=== PATIENT | female | born 1980 | race Caucasian/White ===

== ENCOUNTER 2021-03-01 01:41 | Outpatient (CLI) | payer BC, SELFPAY ==
--- NOTE | 2021-03-01 08:15 | DI.MAMMO_ITS ---
Exam(s) MAMMO SCREENING EXAM: MAMMO SCREENING CLINICAL HISTORY: screening,z12.39 TECHNIQUE: Bilateral full field digital CC and MLO mammographic images were obtained with 3D tomosyn thesis and utilizing computer aided detection (CAD). COMPARISON: Available for comparison. FINDINGS: Masses/Architectural Distortion: None seen. Microcalcifications: No suspicious pleomorphic-type are seen. Skin Thickening/Nipple Retraction: None. IMPRESSION: 1. No significant interval change with no specific features of malignancy noted. 2. Unless there is more urgent need, screening mammography is recommended, as per [place] [employer] guidelines. BI-RADS Category 1 - Negative Breast Density - Category A - Almost entirely fatty Breast density category C or D implies that the patient has dense breast tissue. Dense breast tissue is very common and is not abnormal but dense breast tissue can make it harder to find cancer on a ma mmogram. Also, dense breast tissue may increase their breast cancer risk. This information about the result of the mammogram report was provided to the patient to raise their awareness. Use this report when you speak with the patient about their risks for breast cancer, which includes their family hist ory. At that time, you may recommend for more screening tests (Ultrasound or MRI) as they might be us eful based on their risk. A negative radiographic report should not delay biopsy if a dominant or clinically suspicious mass is present. Up to ten percent of cancers are not identified on mammography. A negative report may reinforce clinical impression. Adenosis and dense breasts may obscure an underlying neoplasm. False positive reports average 6 to 10%. Patient will receive a letter notifying them of these results.
== END 2021-03-01 02:01 ==
PROVIDERS: PCP Nurse Practitioner Family; Visit Provider Nurse Practitioner Family
DX: Z12.31 Encounter for screening mammogram for malignant neoplasm of breast (principal)
CPT/HCPCS: 77063; 77067

== ENCOUNTER 2021-03-18 18:31 | Outpatient (CLI) | payer BC, SELFPAY ==
[2021-03-18 16:40] LABS: Abs Immature Grans 0.02 10^3/uL (0.0-0.06); Absolute Basophil Count 0.04 10^3/uL (0.0-0.2); Absolute Eosinophil Count 0.22 10^3/uL (0.0-0.7); Absolute Lymphocyte Count 3.11 10^3/uL (1.2-3.4); Absolute Neutrophil Count 4.41 10^3/uL (1.2-6.7); Basophils % 0.5; Eosinophils % 2.7; HCT 41.9 % (36.0-46.0); HGB 14.2 g/dL (11.2-15.7); Immature Grans % 0.2; Lymphocytes % 37.5; MCH 29.1 pg (27.0-33.0); MCHC 33.9 % (32.0-36.0); MCV 85.9 fL (80-95); MPV 10.2 fL (8.0-11.0); Neutrophils % 53.1; Nucleated RBC 0 %; Platelet Count 288 10^3/uL (130-400); RBC 4.88 10^6/uL (3.93-5.22); RDW 12.1 % (11.7-14.6); RDW-SD 38.2 fL
[2021-03-18 16:57] LABS: ALT 39 U/L (14-59); AST 22 U/L (15-37); Albumin 4.1 g/dL (3.4-5.0); Alkaline Phosphatase 74 U/L (46-116); Anion Gap 7.6 mmol/L (3-11); BUN 10 mg/dL (7-18); Bilirubin, Total 0.6 mg/dL (0.2-1.0); CO2 24.4 mmol/L (21.0-32.0); CREATININE 0.7 mg/dL (0.55-1.02); Calcium 9.1 mg/dL (8.5-10.1); Calculated LDL 163 mg/dL (<100); Chloride 103 mmol/L (98-107); Cholesterol 248 mg/dL (<200); Glucose 100 mg/dL (74-106); HDL Cholesterol 42 mg/dL (40-60); Potassium 3.7 mmol/L (3.5-5.1); Sodium 135 mmol/L (136-145); TSH (W/Ref FT4) 5.14 uIU/mL (0.36-3.74); Total Protein 7.7 g/dL (6.4-8.2); Triglyceride 218 mg/dL (<150)
[2021-03-18 17:17] LABS: D-Dimer 212 ng/mlFEU (<500)
[2021-03-18 17:28] LABS: FREE T4 1.22 ng/dL (0.76-1.46)
[2021-03-20 12:37] LABS: HIV-1/2 Ag & Ab Screen Negative (Negative)
[2021-03-22 09:46] LABS: Hepatitis C Ab w Rflx HCV PCR Negative (Negative)
== END 2021-03-18 18:32 | disposition home or self-care (01) ==
LOC: LBO 18:32
PROVIDERS: PCP Nurse Practitioner Family; Visit Provider Nurse Practitioner Family
DX: E03.9 Hypothyroidism, unspecified (principal); R06.02 Shortness of breath; Z86.711 Personal history of pulmonary embolism; Z13.1 Encounter for screening for diabetes mellitus; Z13.220 Encounter for screening for lipoid disorders; Z11.4 Encounter for screening for human immunodeficiency virus [HIV]; Z11.59 Encounter for screening for other viral diseases
CPT/HCPCS: 36415; 80053; 80061; 86803; 87389; 84439; 84443; 85025; 85379

== ENCOUNTER 2021-08-20 12:27 | Outpatient (REF) | payer OTHER, SELFPAY | END 2021-08-20 12:28 | disposition home or self-care (01) | LOC: LBN 12:27 | PROVIDERS: PCP Nurse Practitioner Family; Visit Provider Family Medicine | DX: J06.9 Acute upper respiratory infection, unspecified (principal) | CPT/HCPCS: 87449 ==

== ENCOUNTER 2021-08-20 13:53 | Outpatient (CLI) | payer OTHER, SELFPAY ==
--- NOTE | 2021-08-20 12:15 | DI.RAD_ITS ---
Exam(s) XR CHEST 2V PA LATERAL EXAM: XR CHEST 2V PA LATERAL CLINICAL HISTORY: Cough, subjective fevers, rhonchi and wheezing J06.9 URI TECHNIQUE: 2D digital imaging was performed of the chest. Two images were obtained. PA and lateral views were obtained. COMPARISON: No exams were available for comparison FINDINGS: MEDIASTINUM: Normal. HEART: Normal. PULMONARY VASCULATURE: Normal. LUNGS: Clear. PLEURAL SPACE: No pleural effusion or pneumothorax. BONE:Within normal limits for the patient's age. OTHER FINDINGS:Normal. IMPRESSION: No acute pulmonary findings. DATA REPOSITORY: RADIATION DOSE DELIVERED:
== END 2021-08-20 14:13 ==
LOC: DI 14:11
PROVIDERS: PCP Nurse Practitioner Family; Visit Provider Family Medicine
DX: J06.9 Acute upper respiratory infection, unspecified (principal); R05.8 Other specified cough; R06.2 Wheezing; R50.9 Fever, unspecified
CPT/HCPCS: 71046

== ENCOUNTER 2022-05-31 03:04 | Outpatient (CLI) | payer BC, SELFPAY ==
[2022-05-31 15:20] LABS: Anion Gap 7.7 mmol/L (3-11); BUN 12 mg/dL (7-18); CO2 25.3 mmol/L (21.0-32.0); CREATININE 0.9 mg/dL (0.55-1.02); Calcium 8.8 mg/dL (8.5-10.1); Chloride 104 mmol/L (98-107); Estimated GFR 81.35 (mL/min/1.73m2); Glucose 155 mg/dL (74-106); Potassium 3.8 mmol/L (3.5-5.1); Sodium 137 mmol/L (136-145); TSH (W/Ref FT4) 4.32 uIU/mL (0.36-3.74)
[2022-05-31 15:42] LABS: FREE T4 1.09 ng/dL (0.76-1.46)
== END 2022-05-31 03:05 | disposition home or self-care (01) ==
LOC: LBO 03:04
PROVIDERS: PCP Nurse Practitioner Family; Visit Provider Nurse Practitioner Family
DX: E03.9 Hypothyroidism, unspecified (principal); Z13.1 Encounter for screening for diabetes mellitus
CPT/HCPCS: 36415; 80048; 84439; 84443

== ENCOUNTER 2022-07-01 14:15 | Outpatient (REF) | payer BC, SELFPAY ==
--- NOTE | 2022-07-01 14:00 | PAPFT_PTH ---
PATIENT: Beverly Riley LOC: [facility] U#:[id number] AGE/SX: 41/F ROOM: RE07/01/[address]: Macy Ansari APRN : 1980 BED: DIS: 07/01/2022 SPEC #: [id number] RECD: 07/05/22 17:06 STATUS: MARIBELL GARCIA #: [id number] TACHO: 07/01/22 14:[address]: Macy Ansari DEPT: [facility] Cytology RECD BY: Riddhi Khoury Tissues: 1 - CX/ENDOCX FOR PAP SMEARS Procedures: PAP THIN PREP/UVM Screening HPV DNA PROBE Comments: [id number]
== END 2022-07-01 14:16 | disposition home or self-care (01) ==
LOC: LBN 14:15
PROVIDERS: PCP Nurse Practitioner Family; Visit Provider Nurse Practitioner Family
DX: Z12.4 Encounter for screening for malignant neoplasm of cervix (principal); Z11.51 Encounter for screening for human papillomavirus (HPV)
CPT/HCPCS: 88142; 87624

== ENCOUNTER → 2022-09-22 02:23 | Outpatient (CLI) | payer OTHER, SELFPAY ==
--- NOTE | 2022-09-22 08:30 | DI.RAD_ITS ---
Exam(s) XR ANKLE RT COMPLETE EXAM: XR ANKLE RT COMPLETE zz CLINICAL HISTORY: ? bone spurs or calcifications for achilles pain,M76.60,M25.571. TECHNIQUE: 2D digital imaging was performed. Three views. COMPARISON: No exams were available for comparison FINDINGS: BONES: No acute fracture is present. No bony destructive lesion is seen. Enthesophyte is seen at t he Achilles insertion on the calcaneus. No erosions. There is a plantar calcaneal spur. No erosion s. JOINTS: The ankle mortise is normally aligned. SOFT TISSUE: Normal. IMPRESSION: Heel spurs. DATA REPOSITORY: RADIATION DOSE DELIVERED:
== END ==
PROVIDERS: PCP Nurse Practitioner Family; Visit Provider Nurse Practitioner Family
DX: M25.571 Pain in right ankle and joints of right foot; M76.61 Achilles tendinitis, right leg
CPT/HCPCS: 73610

== ENCOUNTER → 2023-02-27 01:57 | Outpatient (CLI) | payer OTHER, SELFPAY ==
--- NOTE | 2023-02-27 08:55 | DI.MAMMO_ITS ---
Exam(s) MAMMO SCREENING EXAM: MAMMO SCREENING CLINICAL HISTORY: screening,z12.39 TECHNIQUE: Mammograms were interpreted according to the usual protocol including computer analysis w DIY Genius CAD system, tomosynthesis and C-view imaging. COMPARISON: 2018 through 2021 FINDINGS: The breasts are composed of mainly fatty density , Breast Density category A. No suspicious masses or suspicious microcalcifications are seen. No skin thickening or abnormal axillary lymph nodes are seen. There has been no significant change from prior exams. IMPRESSION: BI-RADS Category 1, Negative mammogram Yearly screening mammography is recommended. Breast Density - Category A, fatty density. A negative radiographic report should not delay biopsy if a dominant or clinically suspicious mass is present. Up to ten percent of cancers are not identified on mammography. A negative report may reinforce clinical impression. Adenosis and dense breasts may obscure an underlying neoplasm. False positive reports average 6 to 10%. Patient will receive a letter notifying them of these results.
== END ==
PROVIDERS: PCP Nurse Practitioner Family; Visit Provider Nurse Practitioner Family
DX: Z12.31 Encounter for screening mammogram for malignant neoplasm of breast (principal)
CPT/HCPCS: 77063; 77067

== ENCOUNTER 2023-09-18 06:13 | Day surgery (SDC) | payer OTHER, SELFPAY ==
[2023-09-18] VITALS (14 sets, daily range): BP systolic 95–131; BP diastolic 43–73; PULSE 43–69; RESP 13–24; TEMP 36.3–36.5; O2SAT 97–100; BMI 39.9
[2023-09-18] MEDS: Lactated Ringers 1,000 ML 80 ML IV (06:48)
--- NOTE | 2023-09-18 06:56 | W.PM.HP.N ---
Date of service: 09/18/23 Time of Service: 06:57 Assessment and Plan Assessment and plan (1) Urinary incontinence, mixed: Status: Acute Assessment and plan: We will be addressing the stress urinary incontinence component of her mixed incontinence today with a mid urethral sling. She understands that she may have continued urgency and urgency incontinence following this procedure. We discussed potential risks including urinary retention, continued incontinence and complications related to mesh erosion, extrusion and chronic pain. History of Present Illness History of Present Illness Chief Complaint: Stress urinary incontinence Narrative: This is a 42-year-old woman who has a history of mixed urinary incontinence. She does have urgency and difficulty getting to the restroom in time. She also has leakage when she coughs, laughs and sneezes. She has tried and failed behavioral modification and pelvic floor physical therapy. On physical examination, she has a hypermobile urethra. She presents for a mid urethral sling. Review of Systems Narrative: No fevers or chills No vision change or dysphasia Hypothyroidism. No diabetes Snores - no confirmed dx of sleep apnea. No hemoptysis No chest pain or palpitations GERD. No hepatitis, ulcers, jaundice, diarrhea or constipation No seizures, strokes or peripheral neuropathy No bleeding disorders or anemia No gout PFSH All Active Problems Achilles tendinosis of right ankle (Acute) Vitamin D deficiency (Acute) Hypothyroidism (Chronic) Gastroesophageal reflux disease (Chronic) Anxiety and depression (Chronic) Past medication trials: trazodone, hydroxyzine (didn't work); sertraline (made me feel like a zombie) Snoring (Chronic) 12/2020: declines sleep medicine referral Hyperlipidemia, unspecified (Chronic) 03/2021 labs: 10-year ASCVD risk ~1.2% IFG (impaired fasting glucose) (Acute) Achilles tendon pain (Acute) Chronic pain of right ankle (Acute) Urinary incontinence, mixed (Acute) Obesity (Chronic) Hiatal hernia (Chronic) Per pt report Medical History Prolapse of anterior vaginal wall COVID-19 (~02/2021) Chronic low back pain Insomnia Pulmonary embolism, bilateral (~2019) Related to control pills; s/p anticoagulation with a DOAC Surgical History History of colonoscopy (2014) History of wisdom tooth extraction (2000) Family History Mother Heart disease Diabetes Hypertension Hypothyroidism Depression Paternal Grandmother Cancer Maternal Grandfather Diabetes Hypertension Maternal Grandmother Diabetes Social History Smoking/Tobacco Use Status: Never Smoking risk assessment performed?: Yes Alcohol Intake: current Alcohol Intake frequency: a few times a week Drug use: Occasionally Substance use type: marijuana Adopted: No Caregiver/Support person: No Foster care: No Household members: spouse, children and other Details: two sons Housing: house Number of Children: 2 number of grandchildren: 0 Communication Needs: Corrective Lenses Education Level: high school Do you need help understanding health information?: Rarely current occupation: [employer] - [employer] and [employer] work at Pets and animals: Yes (1,2,1) Pets and animals: cat(s), dog(s) and other Details: zenon Sexually active: Yes Do you think of yourself as: straight/heterosexual Current gender identity: female What is your relationship status?: How often do you talk on the phone with friends or family?: once per week How often do you get together with friends or relatives?: never Do you belong to any clubs or organized social groups?: no Panel score (0-1 are the most socially isolated patients): 1 Duration: 15-30 minutes/day Frequency: 3-4 times per week Trang/Yazidi: None Special trang needs: No Seatbelt use: never Helmet use: No Drive intox or ride w/intox star route mail driver: No Do you feel safe at home: Yes Do you feel safe in your relationship?: Yes Female Reproductive History Menstrual Age of Menarche: 8 control method: permanent sterilization ( has vasectomy) History History 2 Para 2 Hx # Term Pregnancies Multiple births Hx # Pregnancies Ectopic pregnancies AB induced Hx Number of Living Children 2 AB spontaneous Past Pregnancies Del. Date GA/Weeks # Preg Succ Route Wgt Sex [facility] 4224.079 g Male [place] [place] 04/23/12 vaginal 3572.04 g Male [place], [place] Delivery Date: 11/03/96 Last Updated by: Elyssa Mosqueda Rad Delivery Date: 04/23/12 Last Updated by: Elyssa Oswald Meds Allergies and Home Medications Allergies Allergy/AdvReac Type Severity Reaction Status Date / Time sertraline AdvReac Other (See Verified 09/18/23 06:21 Comment) Home Medications ?Medication ?Instructions ?Recorded ?Confirmed ?Type cetirizine 10 mg capsule (Zyrtec) 10 mg PO DAILY PRN 12/09/20 09/18/23 History cholecalciferol (vitamin D3) 25 25 mcg PO DAILY 12/09/20 09/18/23 History mcg (1,000 unit) capsule fluticasone propionate 50 1 spray intranasal DAILY PRN 12/16/20 09/18/23 History mcg/actuation nasal spray,suspension (Flonase Allergy Relief) levothyroxine 125 mcg tablet 125 mcg PO DAILY #90 tab-caps 08/25/22 09/18/23 Rx gabapentin 300 mg capsule See Rx Instructions .Route 05/29/23 09/18/23 Rx .COMPLEX #810 caps pantoprazole 40 mg tablet,delayed 40 mg PO DAILY #90 tabs 07/13/23 09/18/23 Rx release escitalopram oxalate 20 mg tablet 20 mg PO DAILY #90 tab-caps 08/07/23 09/18/23 Rx Exam Const General: cooperative and comfortable Neck Neck: supple Resp Effort & Inspection: normal respiratory effort Auscultation: clear to auscultation bilaterally Cardio Rate: regular rate Rhythm: regular rhythm GI Palpation: soft and no masses Neuro General: patient alert, patient awake and patient oriented x3 Results Last Vital Signs Temp 36.5 C 09/18/23 06:23 Pulse 51 L 09/18/23 06:23 Resp 16 09/18/23 06:23 BP 129/73 09/18/23 06:23 Pulse Ox 98 09/18/23 06:23 Time Spent Time spent with Patient: <40 minutes Time was spent: other
--- NOTE | 2023-09-18 07:01 | ANES.PREOP_ITS ---
General Info Date of Service Date Performed: 09/18/23 Height: 5 ft 5 in Weight: 109 kg Body Mass Index (BMI): 39.9 Surgical Procedure: Operation Date: 09/18/23 07:40 Proposed Procedure Side Surgeon p Mid Urethral Sling Ron Gomez MD Meds Allergies and Home Medications Allergies Allergy/AdvReac Type Severity Reaction Status Date / Time sertraline AdvReac Other (See Verified 09/18/23 06:21 Comment) Home Medication ?Medication ?Instructions ?Recorded cetirizine 10 mg capsule (Zyrtec) 10 mg PO DAILY PRN 12/09/20 cholecalciferol (vitamin D3) 25 25 mcg PO DAILY 12/09/20 mcg (1,000 unit) capsule fluticasone propionate 50 1 spray intranasal DAILY PRN 12/16/20 mcg/actuation nasal spray,suspension (Flonase Allergy Relief) levothyroxine 125 mcg tablet 125 mcg PO DAILY #90 tab-caps 08/25/22 gabapentin 300 mg capsule See Rx Instructions .Route 05/29/23 .COMPLEX #810 caps pantoprazole 40 mg tablet,delayed 40 mg PO DAILY #90 tabs 07/13/23 release escitalopram oxalate 20 mg tablet 20 mg PO DAILY #90 tab-caps 08/07/23 Current Visit Medications: Current Medications Generic Name Dose Route Start Last Admin Trade Name Freq PRN Reason Stop Dose Admin Cefazolin Sodium/Dextrose 2 gm in 50 mls @ 100 mls/hr 09/18/23 06:00 Ancef Duplex IVPB 09/18/23 16:00 PREOP CAT Ringer's Solution 1,000 mls @ 80 mls/hr 09/18/23 06:00 09/18/23 06:48 IV 10/15/23 23:59 80 mls/hr INFUSION CAT Administration IV Miscellaneous Supplies 1 each 09/18/23 06:00 Iv Access IV 10/15/23 23:59 DIRECTED CAT Sodium Chloride 0 ml 09/18/23 06:00 Normal Saline Flush 10 Ml Syr IV 10/15/23 23:59 PRN PRN Sodium Chloride 0 ml 09/18/23 06:00 Normal Saline 10 Ml Vial IJ 10/15/23 23:59 DIRECTED PRN Sterile Water 0 ml 09/18/23 06:00 Water,Injection,Sterile 10 Ml Vial IJ 10/15/23 23:59 DIRECTED PRN PFS Active Problems Active Problems: Problem Status Onset Code Achilles tendinosis of right ankle Acute M67.873 Vitamin D deficiency Acute E55.9 Hypothyroidism Chronic E03.9 Gastroesophageal reflux disease Chronic K21.9 Anxiety and depression Chronic F41.9, F32.A Snoring Chronic R06.83 Hyperlipidemia, unspecified Chronic E78.5 IFG (impaired fasting glucose) Acute R73.01 Achilles tendon pain Acute M76.60 Chronic pain of right ankle Acute M25.571, G89.29 Urinary incontinence, mixed Acute N39.46 Obesity Chronic E66.9 Hiatal hernia Chronic K44.9 Medical History Medical History Prolapse of anterior vaginal wall COVID-19 (~02/2021) Chronic low back pain Insomnia Pulmonary embolism, bilateral (~2018) Related to control pills; s/p anticoagulation with a DOAC Surgical History Surgical History History of colonoscopy (2014) History of wisdom tooth extraction (2000) Tobacco Smoking/Tobacco Use Status: Never Passive smoking exposure: No Alcohol Alcohol Intake: current Alcohol intake frequency: a few times a week Substance Use Substance use: Occasionally Substance use type: marijuana Prental History History 2 Para 2 Hx # Term Pregnancies Multiple births Hx # Pregnancies Ectopic pregnancies AB induced Hx Number of Living Children 2 AB spontaneous Past Pregnancies Del. Date GA/Weeks # Preg Succ Route Wgt Sex Labor Lgth Anesth esia Location [facility] 11/03/96 vaginal 4224.079 g Male [place] 04/23/12 vaginal 3572.04 g Male [place], [place] Delivery Date: 11/03/96 Last Updated by: Elyssa Leroy Delivery Date: 04/23/12 Last Updated by: Elyssa Oswald Vital Signs and Lab Results Vital Signs Most Recent Vital Signs in EMR: Most Recent Vital Signs Temp Pulse Resp BP Pulse Ox 36.5 C 51 L 16 129/73 98 09/18/23 06:23 09/18/23 06:23 09/18/23 06:23 09/18/23 06:23 09/18/23 06:23 Point of Care Results Point of Care Results: POC- Test(urine) Negative 09/18/23 06:23 Lab Results Blood Type / Crossmatch: No Data to Display Complete Blood Count: No Data to Display Complete Metabolic Panel: No Data to Display Liver Function Panel: No Data to Display Coagulation Panel: No Data to Display Cardiac Panel: No Data to Display Arterial Blood Gas: No Data to Display Venous Blood Gas: No Data to Display Pancreas Panel: No Data to Display Thyroid Panel: No Data to Display Infectious Disease: No Data to Display Blood Cultures: No Data to Display Toxicology Panel: No Data to Display Panel: No Data to Display Anesthesia Assessment and Plan Anesthesia History Personal History: No History of Anesthesia Complications Family History: No Family History of Anesthesia Complications Exercise Tolerance Exercise Tolerance: Metabolic Equivalents>4 Pertinent Negatives Pertinent Negatives: No Symptoms of GERD, No Major Cardiovascular Symptoms or Complaints and No Major Pulmonary Symptoms or Complaints Cardiac & Pulmonary Exam Cardiac Exam: Normal S1/S2 Heart Sounds Pulmonary Exam: Clear Bilateral Breath Sounds Implantable Cardiac Device Does patient have a Pacemaker or an ICD?: No Airway Exam Known Difficult Airway: No Mallampati Class: 2 Mouth Opening: Normal (> 3cm) Thyromental Distance: Greater than 3 cm Neck Range of Motion: Full ROM Neck Circumference: Thick Teeth Condition: Normal Dentition ASA Classification ASA Score: ASA 2 Emergency Case?: No NPO Status NPO Status: NPO Clears >2 hours, Solids >8 hours Status Status: Negative HCG Anesthesia Plan Resuscitation Status: Full Code Anesthesia Technique: General Anesthesia Airway Planned: Endotracheal Tube Monitors Used: Standard Monitors
[2023-09-18] MEDS: ceFAZolin 2 GM/50 ML BAG IVPB (07:48)
[2023-09-18] MEDS: Lidocaine 2% Jelly 11 ML SYR (08:08)
[2023-09-18] MEDS: Lidocaine 1% Pres-Free 30 ML VIAL (08:09)
--- NOTE | 2023-09-18 08:34 | W.PM.DSUDISC ---
Date of service: 09/18/23 Time of Service: 08:34 Discharge Plan Disposition Patient Disposition: Home Condition: Stable Discharge Details Reason For Visit: midurethral sling Attending Provider: Ron Gomez Primary Care Provider: Kvng Shelton Home Meds and New Rx's Prescriptions: New tramadol 50 mg tablet 50 mg PO Q6H PRN (Reason: pain) Qty: 20 0RF Rx Instructions: may take with tylenol and NSAIDs No Action fluticasone propionate [Flonase Allergy Relief] 50 mcg/actuation spray,suspension 1 spray intranasal DAILY PRN Rx Instructions: administer into each nostril cholecalciferol (vitamin D3) 25 mcg (1,000 unit) capsule 25 mcg PO DAILY Zyrtec 10 mg capsule 10 mg PO DAILY PRN levothyroxine 125 mcg tablet 125 mcg PO DAILY Qty: 90 3RF Rx Instructions: Administer in the morning on an empty stomach, at least 30-60 minutes before food gabapentin 300 mg capsule See Rx Instructions .ROUTE .COMPLEX Qty: 810 0RF Dose Instruction: TAKE THREE CAPSULES BY MOUTH THREE TIMES A DAY FOR NEUROPATHY Rx Instructions: TAKE THREE CAPSULES BY MOUTH THREE TIMES A DAY FOR NEUROPATHY pantoprazole 40 mg tablet,delayed release (DR/EC) 40 mg PO DAILY Qty: 90 3RF Rx Instructions: Take 40 mg once daily in the morning at least 30 minutes before first meal escitalopram oxalate 20 mg tablet 20 mg PO DAILY Qty: 90 3RF Discharge Instructions Additional Instructions: no lifting over 10 pounds until followup visit Activity:: no lifting over 10 pounds Shower/Bathe:: 24 hours Diet:: As Tolerated Discharge Orders Discharge Orders: Discharge Order (Routine); Ordered 09/18/23 Ordered By: Ron Gomez Discharge Data Discharge Comment: pt must void prior to discharge DS: Diagnosis Discharge Diagnosis (1) Urinary incontinence, mixed: Status: Acute
--- NOTE | 2023-09-18 08:41 | W.PM.OP ---
Date of service: 09/18/23 Time of Service: 08:42 Operative Note Operative Note DATE OF PROCEDURE: 09/18/23 PRE-OP DIAGNOSIS: Stress urinary incontinence POST-OP DIAGNOSIS: same PROCEDURE: midurethral sling SURGEON: Ron Gomez ANESTHESIA TYPE: Local By Surgeon and General LMA/ETT Refer to Anesthesia Record ESTIMATED BLOOD LOSS: 5 PATHOLOGY: none sent COMPLICATIONS: None Patient was transported to: PACU Patient's condition: stable Implants: Altis sling Indications: This is a 42-year-old woman who has a history of mixed urinary incontinence. The stress component of her incontinence is most bothersome for her. She has not had any benefit from pelvic floor physical therapy or behavioral modification. She presents now for a mid urethral sling placement Findings: Normal anatomy Procedure Description: The patient was given IV antibiotics and brought to the operating room on 09/18/2023. After successful induction of general anesthesia, she was placed in the dorsal lithotomy position. Her genitalia was prepped and draped. 2% Xylocaine jelly was instilled into the urethra to act as a local anesthetic. A 16 Mosotho Lopez catheter was passed through the urethra into the bladder. The catheter balloon was inflated with 10 cc of sterile water and the bladder was drained. We then identified the mid urethral area by palpating the anterior vaginal wall. We injected submucosally using a combination of 1% lidocaine and saline. I then made an anterior vaginal wall incision overlying the mid urethra. I developed the plane on either side of the urethra up to the pelvic sidewall. We then used an Altis mid urethral sling system to place our sling. Initially, we passed our needle on the right side of the urethra and anchored the sling to the obturator membrane. Likewise, we passed the needle on the left side and secured the sling to the obturator membrane. We then positioned the Lazaro scissors between the sling and the urethra and tensioned the sling. We removed the Lopez catheter and perform cystoscopy using a 22 Mosotho cystoscope and a 70 degree lens. No evidence of bladder injury was identified. We then cut the tensioning suture and removed with the Lazaro scissors. The vaginal incision was then closed with a [id number] 2-0 Vicryl suture. The patient tolerated this procedure well with no complications.
[2023-09-18] MEDS: traMADol 50 MG TAB PO (09:31)
--- NOTE | 2023-09-18 11:18 | W.ANESPOSTOP ---
Postoperative Evaluation Date, Time and Location Date Performed: 09/18/23 Time Performed: 09:21 Patient Location: Day Surgery Unit Vital Signs Most Recent Imported Vital Signs: Most Recent Vital Signs Temp Pulse Resp BP Pulse Ox 36.4 C L 43 L 16 122/69 97 09/18/23 09:49 09/18/23 09:49 09/18/23 09:49 09/18/23 09:49 09/18/23 09:49 Pain Score Most Recent Pain Score: Most Recent Pain Score Pain Level 0 09/18/23 09:49 Assessment Mental Status: Awake (Alert & Oriented to Patient Baseline) Airway and Respiratory Function: Patent airway with normal (patient baseline) respiratory exam Cardiovascular Function: Hemodynamically Stable Hydration Status: Adequately Hydrated Nausea & Vomiting: No Nausea or Vomiting Pain: Pt. Denies Any Pain Peripheral Nerve Block: Patient did not receive a nerve block
== END 2023-09-18 10:06 | disposition home or self-care (01) ==
PROVIDERS: PCP Family Medicine; Visit Provider Urology
PROC: (CPT 57288; principal; 2023-09-18 07:30)
DX: N39.46 Mixed incontinence (principal); E66.9 Obesity, unspecified; E78.5 Hyperlipidemia, unspecified
CPT/HCPCS: 57288; 81025; C1781; J0131; J0690; J1100; J1885; J2001; J2250; J2405; J2704; J3010

== ENCOUNTER 2023-09-22 14:29 | Emergency (ER) | payer OTHER, SELFPAY ==
--- NOTE | 2023-09-22 14:30 | RT.EKG_ITS ---
APPROVED REPORT Exam: Resting ECG Reason for Exam: Chest Pain Patient Location: E HR:61 bpm ECG Measurements Heart Rate [address] 168 P 17 QRSd 107 QRS -2 QT 442 T 43 QTc 445 Conclusion Sinus rhythm No STEMI Intervals normal, no priors available for comparison
[2023-09-22 14:34] VITALS: BP 115/68; PULSE 63; RESP 16; TEMP 36.3; O2SAT 99
--- NOTE | 2023-09-22 15:56 | DI.RAD_ITS ---
Exam(s) XR PORTABLE CHEST AP EXAM: XR PORTABLE CHEST AP CLINICAL HISTORY: Chest pain. TECHNIQUE: 2D digital imaging was performed. COMPARISON: CR XR CHEST 2V PA LATERAL from 08/20/2021 FINDINGS: Single AP portable view. Heart size is upper normal. The mediastinum is not widened. Lungs are clear. No infiltrates nor obvious pleural effusions. IMPRESSION: No acute pulmonary findings on this single AP portable view of the chest. DATA REPOSITORY: RADIATION DOSE DELIVERED:
[2023-09-22 16:25] LABS: Abs Immature Grans 0.02 10^3/uL (0.0-0.06); Absolute Basophil Count 0.05 10^3/uL (0.0-0.2); Absolute Lymphocyte Count 2.71 10^3/uL (1.2-3.4); Absolute Monocyte Count 0.64 10^3/uL (0.1-0.8); Absolute Neutrophil Count 5.28 10^3/uL (1.2-6.7); Basophils % 0.6 %; Eosinophils % 2.2 %; HCT 43.5 % (36.0-46.0); Immature Grans % 0.2 %; Lymphocytes % 30.4 %; MCH 30.7 pg (27.0-33.0); MCHC 34.5 % (32.0-36.0); MCV 89 fL (80-95); MPV 9.8 fL (8.0-11.0); Monocytes % 7.2 %; Neutrophils % 59.4 %; Platelet Count 286 10^3/uL (130-400); RBC 4.89 10^6/uL (3.93-5.22); RDW 12.8 % (11.7-14.6); RDW-SD 41.7 fL
[2023-09-22 16:41] LABS: HCG Qual (Serum) Negative
[2023-09-22 16:48] LABS: ALT 44 U/L (14-59); AST 22 U/L (15-37); Albumin 3.9 g/dL (3.4-5.0); Alkaline Phosphatase 69 U/L (46-116); Anion Gap 11.3 mmol/L (3-11); BUN 8 mg/dL (7-18); Bilirubin, Total 0.75 mg/dL (0.2-1.0); CO2 24.7 mmol/L (21.0-32.0); CREATININE 0.7 mg/dL (0.55-1.02); Calcium 9.2 mg/dL (8.5-10.1); Chloride 102 mmol/L (98-107); Glucose 105 mg/dL (74-106); Magnesium 1.9 mg/dL (1.8-2.4); Potassium 3.9 mmol/L (3.5-5.1); Sodium 138 mmol/L (136-145); Total Protein 7.5 g/dL (6.4-8.2); Troponin I < 50 ng/L (< or =60)
[2023-09-22 16:55] LABS: D-Dimer 308 ng/mlFEU (<500)
--- NOTE | 2023-09-22 17:08 | W.ED.GENAD ---
Discharge Plan Disposition Patient Disposition: Home Condition: Stable Discharge Details Chief Complaint: Chest Pain Clinical Impression: Chest pain of unknown etiology, Gastroesophageal reflux disease, Hyperlipidemia, unspecified, Urinary incontinence, mixed Primary Care Provider: Kvng Shelton ED Provider: Mary Wilson Home Meds and New Rx's Prescriptions: No Action fluticasone propionate [Flonase Allergy Relief] 50 mcg/actuation spray,suspension 1 spray intranasal DAILY PRN Rx Instructions: administer into each nostril tramadol 50 mg tablet 50 mg PO Q6H PRN (Reason: pain) Qty: 20 0RF Rx Instructions: may take with tylenol and NSAIDs cholecalciferol (vitamin D3) 25 mcg (1,000 unit) capsule 25 mcg PO DAILY Zyrtec 10 mg capsule 10 mg PO DAILY PRN levothyroxine 125 mcg tablet 125 mcg PO DAILY Qty: 90 3RF Rx Instructions: Administer in the morning on an empty stomach, at least 30-60 minutes before food gabapentin 300 mg capsule See Rx Instructions .ROUTE .COMPLEX Qty: 810 0RF Dose Instruction: TAKE THREE CAPSULES BY MOUTH THREE TIMES A DAY FOR NEUROPATHY Rx Instructions: TAKE THREE CAPSULES BY MOUTH THREE TIMES A DAY FOR NEUROPATHY pantoprazole 40 mg tablet,delayed release (DR/EC) 40 mg PO DAILY Qty: 90 3RF Rx Instructions: Take 40 mg once daily in the morning at least 30 minutes before first meal escitalopram oxalate 20 mg tablet 20 mg PO DAILY Qty: 90 3RF Discharge Instructions Instructions: Chest Pain (DC) Additional Instructions: You were seen in the emergency department today for evaluation of chest pain. In our department you had a full physical examination performed, had laboratory studies that showed no evidence of damage to your heart, had a negative pulmonary embolism screening study, and had a chest x-ray that does not show any abnormalities. Unfortunately, we are not able to determine the exact cause of chest pain in every patient in the emergency department, and so we recommend following up with your primary care provider in the next few days to discuss this visit and any symptoms that change, worsen, or persist. You can use Tylenol and ibuprofen as needed for management of pain, and we recommend returning to the emergency department if you have a sudden or severe change or worsening of your pain, experience difficulty breathing, change in responsiveness, fever, or any other symptoms that cause you concern. Thank you for allowing us to be part of your care. HPI General Date/Time Provider Initiated Documentation: 09/22/23 15:47. Limitations to Documentation: no limitations. Information obtained by: patient and family. HPI Narrative: MDM: In brief, this is a 42-year-old female patient presenting for evaluation of chest pain. My differential includes but is not limited to ACS, including STEMI, NSTEMI, unstable angina. I considered pulmonary embolism, the patient is moderate risk by Wells criteria with her history, recent surgery, and constellation of symptoms. I certainly considered costochondritis, muscular pain, chest wall injury. Considered pneumonia, pneumothorax, atelectasis, pleural effusion. No focal lung findings to significantly increase my concern for pulmonary edema, reactive airway disease exacerbation. The patient is without abdominal pain, has not had vomiting and I have a lower concern for Boerhaave syndrome, esophagitis, the certainly peptic ulcer disease and GERD could be considered. The patient has no personal risk factors to significantly increase my concern for aortic pathology. We will obtain laboratory studies to include CBC, CMP, troponin, D-dimer, and I will obtain an EKG and chest x-ray. ED Course: I independently interpreted the laboratory studies, which show no significant leukocytosis, anemia, or thrombocytopenia. The chemistry panel is without evidence of electrolyte abnormality, kidney dysfunction, or liver injury. The troponin is negative, as is the D-dimer. The patient's beta hCG is negative. I reviewed the EKG which shows no evidence of ischemia, interval abnormalities, or ectopy. On reassessment the patient reports that her symptoms are stable. I did independently interpret her chest x-ray which shows no abnormalities to account for her symptoms. I provided her with a dose of Toradol for symptomatic management of pain. I recommended following up with her primary care provider for reassessment in the next few days, as emergent causes of her chest pain have been appropriately worked up at this time. The patient is understanding and will take Tylenol and ibuprofen as needed for symptomatic management of her pain. At this time, the patient has had a full medical evaluation and is safe for discharge to home. They are hemodynamically stable, ambulatory, and tolerating PO. They are understanding of the follow-up plan and return precautions. They left our facility without incident. Mary Wilson MD HPI: This is a 42-year-old female patient with a past medical history significant for recent urethral sling surgery, history of provoked PE greater than 5 years ago due to hormonal control, not on anticoagulation, presenting for evaluation of chest pain that started yesterday. Reports that she noticed that her chest felt heavy and pressured, radiates to her left shoulder. States that it is worsened with speech, movement, deep breath, but feels better with palpation. She has not noted any specific positions that worsen the pain but feels more comfortable in a right lateral recumbent position. No nausea or vomiting, no other recent changes to her health, no personal history of cardiac disease. The patient reports that she is most concerned for a blood clot and states that this feels similar to when she last had a blood clot. She took Eliquis for several months but has not been taking that medication for several years, no does not take any hormonal medications and her partner obtained a vasectomy for prevention. The patient has not tried any medications for management of the symptoms, has been able to eat and drink normally. Exam: Gen: Awake and alert, appears uncomfortable HEENT: Non-icteric sclera Neck: Supple Lungs: No apparent respiratory distress, normal respiratory effort. Lung sounds clear and equal bilaterally CV: Appears well perfused, heart with regular rate and rhythm. No chest wall tenderness to palpation, no skin changes, strong and symmetrical distal pulses Abdomen: Non-distended, soft, nontender MSK: Moves 4 extremities without apparent limitation in ROM, no unilateral calf swelling or tenderness Skin: Visualized skin without rashes, cyanosis. Neuro: Normal Gait, no obvious focal deficits or facial asymmetry. Speaks in full, clear sentences. Psych: Appropriate for situation. Related Data Home Medications ?Medication ?Instructions ?Recorded ?Confirmed cetirizine 10 mg capsule (Zyrtec) 10 mg PO DAILY PRN 12/09/20 09/18/23 cholecalciferol (vitamin D3) 25 25 mcg PO DAILY 12/09/20 09/18/23 mcg (1,000 unit) capsule fluticasone propionate 50 1 spray intranasal DAILY PRN 12/16/20 09/18/23 mcg/actuation nasal spray,suspension (Flonase Allergy Relief) levothyroxine 125 mcg tablet 125 mcg PO DAILY #90 tab-caps 08/25/22 09/18/23 gabapentin 300 mg capsule See Rx Instructions .Route 05/29/23 09/18/23 .COMPLEX #810 caps pantoprazole 40 mg tablet,delayed 40 mg PO DAILY #90 tabs 07/13/23 09/18/23 release escitalopram oxalate 20 mg tablet 20 mg PO DAILY #90 tab-caps 08/07/23 09/18/23 tramadol 50 mg tablet 50 mg PO Q6H PRN pain #20 tabs 09/18/23 09/18/23 Previous Rx's ?Medication ?Instructions ?Recorded levothyroxine 125 mcg tablet 125 mcg PO DAILY #90 tab-caps 08/25/22 gabapentin 300 mg capsule See Rx Instructions .Route 05/29/23 .COMPLEX #810 caps pantoprazole 40 mg tablet,delayed 40 mg PO DAILY #90 tabs 07/13/23 release escitalopram oxalate 20 mg tablet 20 mg PO DAILY #90 tab-caps 08/07/23 tramadol 50 mg tablet 50 mg PO Q6H PRN pain #20 tabs 09/18/23 Allergies Allergy/AdvReac Type Severity Reaction Status Date / Time sertraline AdvReac Other (See Verified 09/18/23 06:21 Comment) General Stated Complaint: Chest Pain JENNIFER: 3 Course Vital Signs Vital signs: Vital Signs Temperature 36.3 C L 09/22/23 14:34 Pulse 63 09/22/23 14:34 Respiratory Rate 16 09/22/23 14:34 Blood Pressure 115/68 09/22/23 14:34 Pulse Oximetry 99 09/22/23 14:34 Temperature 36.3 C L 09/22/23 14:34 Temperature Source Tympanic 09/22/23 14:34 Pulse 63 09/22/23 14:34 Respiratory Rate 16 09/22/23 14:34 Blood Pressure 115/68 09/22/23 14:34 Blood Pressure Position Sitting 09/22/23 14:34 Pulse Oximetry 99 09/22/23 14:34 Oxygen Delivery Method Room Air 09/22/23 14:34 Oxygen Flow Rate 0 09/22/23 14:34 Pain Level 2 09/22/23 14:34 Lab/Test Results Lab/Test Results: Laboratory Tests Range/Units 09/22/23 16:18 WBC (4.4-10.8) 10^3/uL 8.90 RBC (3.93-5.22) 10^6/uL 4.89 Hgb (11.2-15.7) g/dL 15.0 Hct (36.0-46.0) % 43.5 MCV (80-95) fL 89 MCH (27.0-33.0) pg 30.7 MCHC (32.0-36.0) % 34.5 RDW (11.7-14.6) % 12.8 Plt Count (130-400) 10^3/uL 286 MPV (8.0-11.0) fL 9.8 Immature Gran % % 0.2 Neutrophils % % 59.4 Lymphocytes % % 30.4 Monocytes % % 7.2 Eosinophils % % 2.2 Basophils % % 0.6 Nucleated RBC % (0.0-0.3) % 0.0 Absolute Neutrophils (1.2-6.7) 10^3/uL 5.28 Absolute Lymphocytes (1.2-3.4) 10^3/uL 2.71 Absolute Monocytes (0.1-0.8) 10^3/uL 0.64 Absolute Eosinophils (0.0-0.7) 10^3/uL 0.20 Absolute Basophils (0.0-0.2) 10^3/uL 0.05 D-Dimer (<500) ng/mlFEU 308 Sodium (136-145) mmol/L 138 Potassium (3.5-5.1) mmol/L 3.9 Chloride (98-107) mmol/L 102 Carbon Dioxide (21.0-32.0) mmol/L 24.7 Anion Gap (3-11) mmol/L 11.3 H BUN (7-18) mg/dL 8 Creatinine (0.55-1.02) mg/dL 0.7 Est GFR (CKD-EPI 2020) (mL/min/1.73m2) 109.30 Glucose (74-106) mg/dL 105 Calcium (8.5-10.1) mg/dL 9.2 Magnesium (1.8-2.4) mg/dL 1.9 Total Bilirubin (0.2-1.0) mg/dL 0.75 AST (15-37) U/L 22 ALT (14-59) U/L 44 Alkaline Phosphatase (46-116) U/L 69 Troponin I (< or =60) ng/L < 50 Total Protein (6.4-8.2) g/dL 7.5 Albumin (3.4-5.0) g/dL 3.9 Serum HCG, Qual Negative Medical Decision Making Quality:SDOH Health Related Social Needs: No Data to Display PFSH All Active Problems (Updated 09/22/23 @ 17:12 by Mary Wilson MD) Chest pain of unknown etiology (Acute) Achilles tendinosis of right ankle (Acute) Vitamin D deficiency (Acute) Hypothyroidism (Chronic) Gastroesophageal reflux disease (Chronic) Anxiety and depression (Chronic) Past medication trials: trazodone, hydroxyzine (didn't work); sertraline (made me feel like a zombie) Snoring (Chronic) 12/2020: declines sleep medicine referral Hyperlipidemia, unspecified (Chronic) 03/2021 labs: 10-year ASCVD risk ~1.2% IFG (impaired fasting glucose) (Acute) Achilles tendon pain (Acute) Chronic pain of right ankle (Acute) Urinary incontinence, mixed (Acute) Obesity (Chronic) Hiatal hernia (Chronic) Per pt report Medical History Prolapse of anterior vaginal wall COVID-19 (~02/2021) Chronic low back pain Insomnia Pulmonary embolism, bilateral (~2018) Related to control pills; s/p anticoagulation with a DOAC Surgical History History of colonoscopy (2014) History of wisdom tooth extraction (2000) Family History Mother Heart disease Diabetes Hypertension Hypothyroidism Depression Paternal Grandmother Cancer Maternal Grandfather Diabetes Hypertension Maternal Grandmother Diabetes Social History Smoking/Tobacco Use Status: Never Smoking risk assessment performed?: Yes Alcohol Intake: current Alcohol Intake frequency: a few times a week Drug use: Occasionally Substance use type: marijuana Adopted: No Caregiver/Support person: No Foster care: No Household members: spouse, children and other Details: two sons Housing: house Number of Children: 2 number of grandchildren: 0 Communication Needs: Corrective Lenses Education Level: high school Do you need help understanding health information?: Rarely 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 Pets and animals: Yes (1,2,1) Pets and animals: cat(s), dog(s) and other Details: zenon Sexually active: Yes Do you think of yourself as: straight/heterosexual Current gender identity: female What is your relationship status?: How often do you talk on the phone with friends or family?: once per week How often do you get together with friends or relatives?: never Do you belong to any clubs or organized social groups?: no Panel score (0-1 are the most socially isolated patients): 1 Duration: 15-30 minutes/day Frequency: 3-4 times per week Trang/Quaker: None Special trang needs: No Seatbelt use: never Helmet use: No Drive intox or ride w/intox mobile lounge driver: No Do you feel safe at home: Yes Do you feel safe in your relationship?: Yes Female Reproductive History Menstrual Age of Menarche: 8 control method: permanent sterilization ( has vasectomy) History History 2 Para 2 Hx # Term Pregnancies Multiple births Hx # Pregnancies Ectopic pregnancies AB induced Hx Number of Living Children 2 AB spontaneous Past Pregnancies Del. Date GA/Weeks # Preg Succ Route Wgt Sex Labor Lgth Anesthesia Location [facility] 11/03/96 vaginal 4224.079 g Male NONA Moody 04/23/12 vaginal 3572.04 g Male KRISTY Connelly Delivery Date: 11/03/96 Last Updated by: Elyssa Leroy Delivery Date: 04/23/12 Last Updated by: Elyssa Oswald
[2023-09-22] MEDS: Ketorolac 15 MG/ML VIAL IVP (17:38)
== END 2023-09-22 17:38 | disposition home or self-care (01) ==
PROVIDERS: Emergency Provider Emergency Medicine; PCP Family Medicine
DX: R07.9 Chest pain, unspecified (principal); R06.02 Shortness of breath; Z86.711 Personal history of pulmonary embolism; Z79.899 Other long term (current) drug therapy; K21.9 Gastro-esophageal reflux disease without esophagitis; E78.5 Hyperlipidemia, unspecified; E03.9 Hypothyroidism, unspecified
CPT/HCPCS: 80053; 93005; 96374; 99285; 71045; 83735; 84484; 84703; 85025; 85379; 93010; 99284; J1885

== ENCOUNTER 2023-10-13 01:07 | Outpatient (CLI) | payer OTHER, SELFPAY ==
[2023-10-13 09:44] LABS: ALT 33 U/L (14-59); AST 18 U/L (15-37); Albumin 3.8 g/dL (3.4-5.0); Alkaline Phosphatase 69 U/L (46-116); Anion Gap 9.6 mmol/L (3-11); BUN 9 mg/dL (7-18); CO2 25.4 mmol/L (21.0-32.0); CREATININE 0.8 mg/dL (0.55-1.02); Calcium 9.3 mg/dL (8.5-10.1); Calculated LDL 149 mg/dL (<100); Chloride 102 mmol/L (98-107); Cholesterol 254 mg/dL (<200); Estimated GFR 93.12 (mL/min/1.73m2); Glucose 151 mg/dL (74-106); HDL Cholesterol 41 mg/dL (40-60); Potassium 3.8 mmol/L (3.5-5.1); Sodium 137 mmol/L (136-145); TSH (W/Ref FT4) 4.49 uIU/mL (0.36-3.74); Total Protein 7.4 g/dL (6.4-8.2); Triglyceride 321 mg/dL (<150)
[2023-10-13 10:00] LABS: FREE T4 1.02 ng/dL (0.76-1.46)
== END 2023-10-13 01:08 | disposition home or self-care (01) ==
LOC: LBO 01:08
PROVIDERS: PCP Family Medicine; Referring Provider Family Medicine; Visit Provider Family Medicine
DX: E03.9 Hypothyroidism, unspecified (principal)
CPT/HCPCS: 36415; 80053; 80061; 84439; 84443

== ENCOUNTER 2024-11-27 12:15 | Outpatient (CLI) | payer OTHER, SELFPAY ==
--- NOTE | 2024-11-27 11:50 | DI.RAD_ITS ---
Exam(s) XR CHEST 2V PA LATERAL EXAM: XR CHEST 2V PA LATERAL CLINICAL HISTORY: R05.9 Cough rule out pneumonia TECHNIQUE: 2D digital imaging was performed of the chest. Two images were obtained. PA and lateral views were obtained. COMPARISON: CR XR CHEST 2V PA LATERAL from 08/20/2021 CR XR PORTABLE CHEST AP from 09/22/2023 FINDINGS: MEDIASTINUM: Normal. HEART: Normal. PULMONARY VASCULATURE: Normal. LUNGS: Clear. PLEURAL SPACE: No pleural effusion or pneumothorax. BONE:Within normal limits for the patient's age. OTHER FINDINGS:Normal. IMPRESSION: No acute pulmonary findings. DATA REPOSITORY: RADIATION DOSE DELIVERED:
== END 2024-11-27 12:35 ==
LOC: DI 12:17
PROVIDERS: PCP Family Medicine; Visit Provider Nurse Practitioner Family
DX: R05.9 Cough, unspecified (principal)
CPT/HCPCS: 71046